=== PATIENT | female | born 1995 | race Caucasian/White ===

== ENCOUNTER 2018-12-09 16:27 | Outpatient (REF) | payer BC, SELFPAY ==
--- NOTE | 2018-12-09 14:00 | PAPFT_PTH ---
PATIENT: Diana Shah LOC: [facility] U#:[id number] AGE/SX: 23/F ROOM: RE12/09/[address]: REBEL Valentin : 1995 BED: DIS: 12/09/2018 SPEC #: [id number] RECD: 12/09/18 17:49 STATUS: ASHLEY RECarlos #: [id number] ELDA: 12/09/18 14:[address]: Jazmyne Rowland DEPT: [facility] Cytology RECD BY: Chantelle Luciano ENTERED: 12/09/18 17:50 SP TYPE: PAPFT OTHR DR: Suad Null MD Tissues: 1 - CX/ENDOCX FOR PAP SMEARS Procedures: PAP THIN PREP/UVM Screening Comments: [id number]
[2018-12-13 14:26] LABS: Chlamydia Result Negative; GC Result Negative; Specimen Description CERVIX
== END 2018-12-09 16:47 ==
LOC: LBN 16:27
PROVIDERS: PCP Family Medicine; Visit Provider Nurse Practitioner Family
DX: Z11.3 Encounter for screening for infections with a predominantly sexual mode of transmission (principal); Z12.4 Encounter for screening for malignant neoplasm of cervix
CPT/HCPCS: 87491; 87591; 88142

== ENCOUNTER 2019-10-18 11:55 | Outpatient (CLI) | payer BC, SELFPAY ==
[2019-10-18 13:59] LABS: HCG Quant, Pregnancy 247 mIU/mL (1-3)
== END 2019-10-18 12:15 ==
PROVIDERS: Visit Provider Nurse Practitioner Family
DX: O20.9 Hemorrhage in early pregnancy, unspecified (principal)
CPT/HCPCS: 36415; 84702

== ENCOUNTER 2019-10-20 12:32 | Outpatient (CLI) | payer BC, SELFPAY ==
[2019-10-20 13:18] LABS: HCG Quant, Pregnancy 258 mIU/mL (1-3)
== END 2019-10-20 12:52 ==
PROVIDERS: Visit Provider Nurse Practitioner Family
DX: O20.9 Hemorrhage in early pregnancy, unspecified (principal)
CPT/HCPCS: 36415; 84702

== ENCOUNTER 2019-10-28 12:46 | Outpatient (CLI) | payer BC, SELFPAY ==
[2019-10-28 14:03] LABS: HCG Quant, Pregnancy 85 mIU/mL (1-3)
== END 2019-10-28 13:06 ==
PROVIDERS: Visit Provider Nurse Practitioner Family
DX: O20.9 Hemorrhage in early pregnancy, unspecified (principal)
CPT/HCPCS: 36415; 84702

== ENCOUNTER 2019-11-18 13:09 | Outpatient (CLI) | payer BC, SELFPAY ==
[2019-11-18 14:25] LABS: HCG Quant, Pregnancy < 1 mIU/mL (1-3)
== END 2019-11-18 13:29 ==
PROVIDERS: Visit Provider Nurse Practitioner Family
DX: O20.9 Hemorrhage in early pregnancy, unspecified (principal)
CPT/HCPCS: 36415; 84702

== ENCOUNTER 2020-05-09 03:56 | Outpatient (CLI) | payer BC, SELFPAY ==
[2020-05-09 10:45] LABS: Abs Immature Grans 0.02 k/cumm (0.0-0.09); Absolute Basophil Count 0.01 k/cumm (0.0-0.2); Absolute Eosinophil Count 0.05 k/cumm (0.0-0.7); Absolute Lymphocyte Count 0.92 k/cumm (1.2-3.4); Absolute Monocyte Count 0.63 k/cumm (0.11-0.7); Absolute Neutrophil Count 5.09 k/cumm (1.2-6.7); Basophils % 0.1; Eosinophils % 0.7; HCT 40.8 % (36.0-46.0); HGB 13.6 g/dL (12.0-15.5); Immature Grans % 0.3 %; Lymphocytes % 13.7; Mean Corp. HGB Concentration 33.3 g/dL (32.0-36.0); Mean Corpuscular Hemoglobin 30.2 pg (27.0-33.0); Mean Corpuscular Volume 90.5 fL (80-95); Mean Platelet Volume 10.5 fL (8.0-11.0); Monocytes % 9.4; Neutrophils % 75.8; Platelet Count 232 x1000/uL (130-400); RBC 4.51 m/cumm (4.00-5.20); RBC Distribution Width 13.7 % (11.7-14.6); White Blood Cell Count 6.72 k/cumm (4.4-10.8)
[2020-05-09 11:30] LABS: TSH (W/Ref FT4) 0.81 uIU/mL (0.36-3.74)
[2020-05-10 09:59] LABS: Varicella IgG Antibody Positive (See Note)
[2020-05-10 10:03] LABS: Rubella IgG Ab (UVM) Positive (See Note)
[2020-05-10 13:23] LABS: Hepatitis B Surface Ag Negative (Negative)
[2020-05-10 13:35] LABS: Hepatitis C Ab w Rflx HCV PCR Negative (Negative)
[2020-05-10 14:10] LABS: HIV-1/2 Ag & Ab Screen Negative (Negative)
[2020-05-11 12:14] LABS: Syphilis Total Ab w/Reflex Nonreactive (Nonreactive)
== END 2020-05-09 04:16 ==
PROVIDERS: Advanced Practice Midwife; Visit Provider Obstetrics & Gynecology Gynecology
DX: Z34.91 Encounter for supervision of normal pregnancy, unspecified, first trimester (principal); Z3A.12 12 weeks gestation of pregnancy
CPT/HCPCS: 36415; 86787; 86803; 86850; 86900; 86901; 87340; 87389; 84443; 85025; 86762; 86780

== ENCOUNTER 2020-05-09 13:01 | Outpatient (REF) | payer BC, SELFPAY ==
[2020-05-09 11:33] LABS: *AMPHETAMINES SCREEN URINE Negative (Negative); *BARBITURATES SCREEN URINE Negative (Negative); *BENZODIAZEPINES SCREEN URINE Negative (Negative); Cannabinoids THC Negative (Negative); Cocaine Screen,Urine Negative (Negative); METHADONE URINE SCREEN Negative (Negative); OPIATES URINE SCREEN Negative (Negative)
[2020-05-09 11:39] LABS: Tricyclic Antidepressants Negative (Negative)
[2020-05-10 14:35] LABS: Chlamydia Result Negative (Negative); GC Result Negative (Negative)
[2020-05-15 14:17] LABS: Buprenorphine Negative; Norbuprenorphine Negative
== END 2020-05-09 13:21 ==
LOC: LBN 13:01
PROVIDERS: Visit Provider Advanced Practice Midwife
DX: Z34.91 Encounter for supervision of normal pregnancy, unspecified, first trimester (principal); Z3A.12 12 weeks gestation of pregnancy
CPT/HCPCS: 80307; 87491; 87591; 87086; 87480; 87510; 87660

== ENCOUNTER 2020-06-21 01:24 | Outpatient (CLI) | payer BC, SELFPAY ==
--- NOTE | 2020-06-21 06:45 | DI.US_ITS ---
EXAM: US OB 2-3 TRIMESTER CLINICAL HISTORY: 18 wk anatomy survey, [id number]. TECHNIQUE: Transabdominal obstetrical ultrasound performed. COMPARISON: US PELVIS ULTRASOUND from 12/03/2009 FINDINGS: Transabdominal obstetrical ultrasound performed. FINDINGS: Number of fetuses: One. position: Varied. heart rate: 143 bpm. Placental location: Anterior. No evidence of previa. BIOMETRIC DATA: EFW: 239 grms 71% Composite Age: 18 weeks 4 days EDC: 11/18/2020 Amniotic fluid index: Amount of fluid is within normal limits. ANATOMICAL SURVEY: Within normal limits. Placental cord insertion site is 1.5 cm from the placental edge. IMPRESSION: 1. Single live intrauterine gestation as above. 2. Marginal cord insertion. 3. Normal anatomic survey. DATA REPOSITORY:
== END 2020-06-21 01:44 ==
PROVIDERS: Visit Provider Advanced Practice Midwife
DX: Z34.92 Encounter for supervision of normal pregnancy, unspecified, second trimester (principal); Z3A.18 18 weeks gestation of pregnancy
CPT/HCPCS: 76805

== ENCOUNTER 2020-08-27 00:35 | Outpatient (CLI) | payer BC, SELFPAY ==
--- NOTE | 2020-08-27 08:30 | DI.US_ITS ---
EXAM: US OB RUDY WEIGHT CLINICAL HISTORY: ,O43.193,wt,cord insertion TECHNIQUE: Ultrasound performed using standard protocol. COMPARISON: US US OB 2-3 TRIMESTER from 06/21/2020 FINDINGS: Ob ultrasound was performed utilizing 3rd trimester protocol. biometry is consistent with gest ational age of 28 weeks 3 days and EDC of November 16, 2020. The estimated weight is 1186 grams which is at the 50th percentile for predicted gestational ag e. Placenta is anterior and there is no evidence of placenta previa. The cord insertion on the placenta is about 17 millimeters from the placental margin. Fetus is in cephalic presentation. heart rate is 136 BPM. There is visually a normal quantity of amniotic fluid and the RUDY is 14. IMPRESSION: DATA REPOSITORY:
== END 2020-08-27 00:55 ==
PROVIDERS: Visit Provider Advanced Practice Midwife
DX: O43.193 Other malformation of placenta, third trimester (principal)
CPT/HCPCS: 76816

== ENCOUNTER 2020-08-27 16:16 | Outpatient (CLI) | payer BC, SELFPAY ==
[2020-08-27 16:57] LABS: HCT 37.1 % (36.0-46.0); MCH 30.3 pg (27.0-33.0); MCHC 32.3 % (32.0-36.0); MCV 93.7 fL (80-95); MPV 11.7 fL (8.0-11.0); Platelet Count 215 10^3/uL (130-400); RBC 3.96 10^6/uL (3.93-5.22); RDW 13.1 % (11.7-14.6); WBC 12.27 10^3/uL (4.4-10.8)
[2020-08-27 17:09] LABS: Glucose,1 Hr (Glucola) 145 mg/dL (80-140)
== END 2020-08-27 16:36 ==
PROVIDERS: Visit Provider Advanced Practice Midwife
DX: Z34.93 Encounter for supervision of normal pregnancy, unspecified, third trimester (principal); Z3A.28 28 weeks gestation of pregnancy
CPT/HCPCS: 36415; 82950; 85027

== ENCOUNTER 2020-09-03 02:13 | Outpatient (CLI) | payer BC, SELFPAY ==
[2020-09-03 11:20] LABS: Glucose 1 Hour 162 mg/dL
[2020-09-03 13:17] LABS: Glucose 3 Hour 122 mg/dL
== END 2020-09-03 02:33 ==
PROVIDERS: Advanced Practice Midwife; Visit Provider Advanced Practice Midwife
DX: Z34.93 Encounter for supervision of normal pregnancy, unspecified, third trimester (principal)
CPT/HCPCS: 36415; 82951

== ENCOUNTER 2020-09-25 01:15 | Outpatient (CLI) | payer BC, SELFPAY ==
--- NOTE | 2020-09-25 07:15 | DI.US_ITS ---
EXAM: US OB RUDY WEIGHT CLINICAL HISTORY: marginal cord insertion, thus needs serial growth,o43.193 TECHNIQUE: Ultrasound performed using standard protocol. COMPARISON: US US OB RUDY WEIGHT from 08/27/2020 FINDINGS: Ob ultrasound was performed utilizing 3rd trimester protocol. biometry is consistent with gest ational age of 32 weeks 4 days and EDC of November 16, 2020. The estimated weight is 1929 grams which is at the 46th percentile for predicted gestational ag e. Placenta is anterior. Previously noted marginal cord insertion is not well visualized on today's exa mination. Fetus is in cephalic presentation. heart rate, 150 BPM. There is visually a normal quantity of amniotic fluid and the RUDY is 19. IMPRESSION: DATA REPOSITORY:
== END 2020-09-25 01:35 ==
PROVIDERS: Visit Provider Advanced Practice Midwife
DX: O43.193 Other malformation of placenta, third trimester (principal)
CPT/HCPCS: 76816

== ENCOUNTER 2020-10-22 02:22 | Outpatient (CLI) | payer BC, SELFPAY ==
--- NOTE | 2020-10-22 07:00 | DI.US_ITS ---
EXAM: US OB RUDY WEIGHT CLINICAL HISTORY: marginal cord insertion needs serial usg last 46%,o43.193. TECHNIQUE: Transabdominal obstetrical ultrasound was performed. COMPARISON: US US OB RUDY WEIGHT from 09/25/2020 FINDINGS: There is a single viable intrauterine gestation with cardiac activity identified-155 bpm The fetus is presently in cephalic position . Amniotic fluid: There is a normal amount of amniotic fluid with an RUDY of 20.1cm. Placental location: The placenta is anterior grade 2-3,with no evidence of placenta previa.The abilit y 0 cord insertion is less than 2 centimeters from the placental margin. Dating parameters place this at approximately 36 weeks and 1 day gestational age, implying JEANNA of November 18, 2020. BPD measures 35 weeks and 0 days HC measures 38 weeks and 1 day AC measures 36 weeks and 4 days FL measures 35 weeks and 0 days Estimated weight is 2855 gm-6 pounds, 5 ounces. Fetus is at the 58th percentile on the Hadlock scale. IMPRESSION:: Viable 3rd trimester gestation as described. The umbilical cord insertion is less than 2 centimeters from the placental margin. DATA REPOSITORY:
== END 2020-10-22 02:42 ==
PROVIDERS: Visit Provider Advanced Practice Midwife
DX: Z34.93 Encounter for supervision of normal pregnancy, unspecified, third trimester (principal); Z3A.36 36 weeks gestation of pregnancy
CPT/HCPCS: 76816

== ENCOUNTER 2020-10-22 10:53 | Outpatient (REF) | payer BC, SELFPAY ==
[2020-10-22 11:58] LABS: *AMPHETAMINES SCREEN URINE Negative (Negative); *BARBITURATES SCREEN URINE Negative (Negative); *BENZODIAZEPINES SCREEN URINE Negative (Negative); Cannabinoids THC Negative (Negative); Cocaine Screen,Urine Negative (Negative); METHADONE URINE SCREEN Negative (Negative); OPIATES URINE SCREEN Negative (Negative); Tricyclic Antidepressants Negative (Negative)
[2020-10-28 12:24] LABS: Buprenorphine Negative
== END 2020-10-22 11:13 ==
LOC: LBN 10:53
PROVIDERS: Visit Provider Advanced Practice Midwife
DX: Z34.93 Encounter for supervision of normal pregnancy, unspecified, third trimester (principal); Z36.85 Encounter for antenatal screening for Streptococcus B; Z3A.36 36 weeks gestation of pregnancy
CPT/HCPCS: 80307; 87081

== ENCOUNTER 2020-11-07 19:48 | Inpatient (IN) | payer BC, SELFPAY ==
[2020-11-07] MEDS: Methylergonovine 0.2 MG/ML VIAL (00:08)
--- NOTE | 2020-11-07 20:21 | HPE_ITS ---
Date of service: 11/07/20 Time of Service: : Assessment and Plan Assessment and plan (1) Spontaneous rupture of membranes: Status: Acute Assessment and plan: A: G1 @ 38 wks, SROM clear confirmed Known marginal cord insertion, normally grown AGA fetus per serial scans Category 1 tracing, GBS negative low risk for shoulder dystocia or PPH early labor/latent phase P: Admit to BC, CBC, T&S, COVID swab Intermittent auscultation, expectant management Anticipate OB-HPI Labor/Delivery History of Present Illness Reason for Visit: R/O SROM AT TERM Chief Complaint: Suspected Rupture of Membranes , Associated Signs and Symptoms of Suspected ROM: gushes of clear fluid began at 1700 today. JEANNA Calculator Estimated Delivery Date Method Current WG Current Estimate 11/20/20 Ultrasound #1 38w 1d Other Estimates 11/22/20 LMP (Certain) 37w 6d History of Present Expected Delivery Route/Plan - CNM FOB/ - Hamzah Shah (first child) BG - Daisy Lockhart GBS negative Specific Issues/Plan 1. Undecided about optional AP screening, will discuss w/FOB 1a. Declines AP screening tests, 06/21/20 declination form signed al 2. BV+ on VPS, Rx Flagyl 500 mg PO BID x7 days 3. 06/21/20 Anatomy screen= marginal cord insertion to edge of placenta =1.[address] Al: f/u @ 28 weeks, possible serial f/u depending on findings. al 3a. Consult with Dr. Al -Growth US at 32 and 36 weeks. 3b. Normal US at 28 weeks 46%ile, RUDY 19.2 3c. 10/22/20 usg(last of serial) 58%/20.1 al 4. 27 wk glucola level elevated at 145, 3 hr GTT is nml x4 5. 36 week uds neg al Review of Systems All systems reviewed & are unremarkable except as noted in HPI and below Constitutional Constitutional: Reports system reviewed and no additional complaints, except as documented ENT Ears, Nose, Mouth, and Throat: Reports system reviewed and no additional complaints, except as documented Cardiovascular Cardiovascular: Reports system reviewed and no additional complaints, except as documented Respiratory Respiratory: Reports system reviewed and no additional complaints, except as documented Gastrointestinal Gastrointestinal: Reports system reviewed and no additional complaints, except as documented Genitourinary Genitourinary: Reports system reviewed and no additional complaints, except as documented Musculoskeletal Musculoskeletal: Reports system reviewed and no additional complaints, except as documented Integumentary/Breasts Skin/Breast: Reports system reviewed and no additional complaints, except as documented Neurologic Neurologic: Reports system reviewed and no additional complaints, except as documented Psychiatric Psychiatric: Reports system reviewed and no additional complaints, except as documented Allergic/Immunologic Allergic/Immunologic: Reports system reviewed and no additional complaints, except as documented PFSH Medical History (Updated 11/07/20 @ 20:29 by Cherie Thomas) 12 weeks gestation of 18 weeks gestation of Contraception (05/02/16) IUD surveillance (04/17/17) Positive test Family History (Updated 06/21/20 @ 08:52 by Truman Delatorre CNM) Maternal Uncle Hypertension Hodgkin lymphoma Paternal Aunt Pancreatic cancer Social History Smoking/Tobacco Use Status: Never Smoking risk assessment performed?: Yes Current gender identity: female Female Reproductive History Menstrual control method: progestin IUCD History History 2 Para 0 Hx # Term Pregnancies 0 Multiple births 0 Hx # Pregnancies 0 Ectopic pregnancies 0 AB induced 0 Hx Number of Living Children 0 AB spontaneous 1 Meds Home Medications and Allergies Home Medications Medication Instructions Recorded Confirmed Type prenat.vits,sherrie,[id number] 1 tab PO DAILY 10/18/19 09/25/20 History Allergies Allergy/AdvReac Type Severity Reaction Status Date / Time pertussis vaccine,adsorbed Allergy Intermediate seizures Verified 11/05/20 09:22 Exam Physical Exam Vital Signs Reviewed: Yes Constitutional Constitutional: mild distress and cooperative Detailed Labor and Delivery Exam Dilation: 3 Effacement (%): 90 station: -2 Cervix position: posterior Consistency: medium MORGAN Score(Cervical Ripeness Score): 7 Amniotic Membrane Status: Ruptured Rupture Method: Spontaneous Amniotic Fluid: Clear Pooling: Positive Nitrazine: Positive Ferning: Present Monitor Mode: External Contraction Frequency(min): irregular and frequent Contraction Duration(sec): 40-50 seconds Contraction Intensity: Mild Fetus A Heart Rate Baseline: 135 Monitor Accelerations: 15 X 15 Monitor Decelerations: None Variability: Moderate (6-25 BPM) Presentation: Cephalic Categories: Category I Est. Weight: 6 lb 13.349 oz Est. Weight: 3100 gms Date of Membrane Rupture: 11/07/20 Time of Membrane Rupture: 17:00 HEENT Exam HEENT Exam: Normal Neck Exam Neck Exam: Normal Chest/Brest/Axilla Exam Chest Exam: Normal Breast Exam Breast Exam: Normal Respiratory Exam Respiratory Exam: Normal Cardiovascular Exam Cardiovascular Exam: Normal Abdominal Exam Abdominal Exam: Normal (Gravid, soft, S=D) Rectal Exam Rectal Exam: Not Done Exam Exam: Normal Extremities Exam Extremities Exam: Normal Back/Spine/Pelvis Exam Back Exam: Normal Pelvis Adequate: Yes Skin Exam Skin Exam: Normal Neurological Exam Neurological Exam: Normal Psychiatric Exam Psychiatric Exam: Normal Results Results Group Beta Strep: Negative Blood Type: O+ Rubella Status: Immune Varicella Immunity: Immune Risk Assessment Risk for Shoulder Dystocia Historical/Initial OB: NEGATIVE FOR: Pelvic Abnormality, Pre- BMI>30, Previous Shoulder Dystocia or Previous Macrosomia 40 Weeks: POSTIVE FOR: Maternal Weight Gain >40lb; NEGATIVE FOR: EFW> 4500 gms or Post Dates Increased Risk?: No Counselin/21: serial growth scans for EFW in the 46th percentile at 32 wks, then 58th percentile at 36 wks therefore risk for SD is low in the setting of primipara with >40 lb TWG. Date/Initial: 10/22/20 reviewed wt gain. al Delivery Plan @ 36wks: al Risk for Pre-Eclampsia Daily Dose ASA Indicated: No Yes, if one or more: NEGATIVE FOR: Hx Pre-E/Gest HTN, Chronic HTN, Multiple Gestation, Pre-gestational DM, Renal Disease, Systemic Lupus or APA Syndrome Yes, if 2 or more: POSITIVE FOR: Nulliparity; NEGATIVE FOR: Age>= 35 yrs, >10yr btwn pregnancies, BMI>30, ethinicty, Mother/Sister w/ Pre-E or Previous IUGR Risk for Post- Hemorrhage Initial: NEGATIVE FOR: Multiple Gestation, Previous PPH, Known Clotting Deficiency, Grand Multiparity or Anticoagulation At Risk?: No Counseled re: Active Management: Yes (10/22/20 al) Date/Initials: 10/22/20 al Risks Reviewed Risks Reviewed Upon Admission: Yes
[2020-11-07 21:10] LABS: HCT 39.7 % (36.0-46.0); HGB 13.1 g/dL (11.2-15.7); MCH 29.7 pg (27.0-33.0); MPV 12.2 fL (8.0-11.0); Platelet Count 184 10^3/uL (130-400); RBC 4.41 10^6/uL (3.93-5.22); RDW 12.6 % (11.7-14.6); RDW-SD 41.5 fL; WBC 11.35 10^3/uL (4.4-10.8)
[2020-11-07 22:21] VITALS: BP 139/67; PULSE 84; RESP 18; TEMP 36.7; O2SAT 99
--- NOTE | 2020-11-07 22:33 | W.PM.OBNL1 ---
Date of service: 11/07/20 Time of Service: 22:34 Pelvic Exam Dilation: 7 Effacement (%): 100 station: 0 Cervix Position: anterior Consistency: soft Vaginal Exam Presentation: Cephalic Contractions Monitor Mode: Palpation Contraction Frequency(min): every 2 minutes Contraction Duration(sec): 60-90 seconds Intensity: Moderate/Strong Fetus A Monitor: Doppler Heart Rate Baseline: 135 Presentation: Cephalic FHR Rhythm: Regular Characteristics: Normal Accelerations: Present Decelerations: None Amniotic Membrane Status: Ruptured Assessment and Plan Assessment and plan (1) Spontaneous rupture of membranes: Status: Acute Assessment and plan: A: Primip in active spontaneous labor P: Continue current management Anticipate Objective Abnormal lab results 11/07/20 Range/Units 21:00 WBC 11.35 H (4.4-10.8) 10^3/uL MPV 12.2 H (8.0-11.0) fL Temp Pulse Resp BP Pulse Ox 98.1 F 84 18 139/67 99 11/07/20 22:21 11/07/20 22:21 11/07/20 22:21 11/07/20 22:21 11/07/20 22:21 Laboratory Results WBC 11.35 10^3/uL (4.4-10.8) H 11/07/20 21:00 RBC 4.41 10^6/uL (3.93-5.22) 11/07/20 21:00 Hgb 13.1 g/dL (11.2-15.7) 11/07/20 21:00 Hct 39.7 % (36.0-46.0) 11/07/20 21:00 MCV 90.0 fL (80-95) 11/07/20 21:00 MCH 29.7 pg (27.0-33.0) 11/07/20 21:00 MCHC 33.0 % (32.0-36.0) 11/07/20 21:00 RDW 12.6 % (11.7-14.6) 11/07/20 21:00 Plt Count 184 10^3/uL (130-400) 11/07/20 21:00 MPV 12.2 fL (8.0-11.0) H 11/07/20 21:00 Patient ABO/Rh O Positive 11/07/20 21:00 Vital Signs Reviewed: Yes Objective Narrative Objective Narrative: vss active labor coping well using nitrous and changing positions FOB present for support FHT reassuring per intermittent auscultation Subjective Interval history since last seen: Intense contractions, using nitrous, was in shower, now hands and knees on mat, suing cub for upper body support Results Hemoglobin/Hematocrit: Hgb 13.1 g/dL (11.2-15.7) 11/07/20 21:00 Hct 39.7 % (36.0-46.0) 11/07/20 21:00 Abnormal Lab Findings: Abnormal Labs 11/07/20 21:00 WBC 11.35 H MPV 12.2 H
[2020-11-07 23:07] VITALS: BP 117/68; PULSE 90; TEMP 36.6
[2020-11-07 23:22] VITALS: PULSE 90
[2020-11-07] MEDS: Oxytocin 10 UNITS/ML VIAL IM (23:56)
[2020-11-08] VITALS (12 sets, daily range): BP systolic 114–134; BP diastolic 71–88; PULSE 72–93; RESP 16–80; TEMP 36.7–36.8; O2SAT 98
--- NOTE | 2020-11-08 00:25 | W.OBDELIVERY ---
Date of service: 11/08/20 Time of Service: 00:25 OB Labor/ Delivery Information Baby A Delivery Delivery Method: Spontaneaous Presentation: Cephalic Cephalic Position: Vertex Vertex Position: Left Occipital Anterior Breech Position: N/A Cord Description-Baby A: 3 Vessels Cord Description Comment: eccentric insertion with succenturiate lobe, 2 velamentous vessels running between the lobe and the main placental disc, into the cord insertion area Amniotic Fluid: Clear Estimated Blood Loss: 400 Delivery Outcome: Liveborn Complications: left nuchal hand, copious vernix Infant Transferred: Remains with Mother Note: Pt labored effectively and actively using nitrous, began pushing spontaneously after emptying her bladder on the bedside commode, 2nd stage huddle completed, pt assisted to bed. Excellent maternal efforts achieved over intact perineum, left nuchal hand and shoulders came easily, baby to mother's arms immediately, 10 units pitocin given IM. At 6 minutes cord ceased pulsating, was clamped and then cut by FOB, cord blood collected. Partial separation of placenta noted with increasing vaginal bleeding, 0.2 mg methergine given IM, Cantu placenta delivered intact with maternal efforts, fundal massage and very baljit cord traction. Eccentric 3VC (3 cm from edge), succenturiate lobe noted joined to main placental disc with 2 velamentous vessels running between the lobes and entering the cord insertion area. Vulva and vagina inspected and found to be without laceration, left labial lac edges tacked with 1 stitch of 3.0 Vicryl. Excellent family bonding noted. Providers Nurse Transition Specialist: Cherie Thomas Nurse: Edel Shelby Nurse: Patti Dasilva Labor/Delivery Information Steroids Given: None Group Beta Strep: Negative Rubella Status: Immune Blood Type: O+ Varicella Immunity: Immune Maternal Complications: None Shoulder Dystocia: No Stages of Labor Onset of Labor Date: 11/07/20 Onset of Labor Time: 17:00 Complete Dilatation Date: 11/07/20 Complete Dilatation Time: 23:22 Labor - Stage 1 Duration: 0 minutes ROM Baby A: 11/07/20 ROM Baby A: 17:00 Delivery Date-Baby A: 11/07/20 Infant Delivery Time-Baby A: 23:54 Labor Stage 2 Duration: 32 minutes Placenta Delivery Date-Baby A: 11/08/20 Placenta Delivery Time-Baby A: 00:10 Labor-Stage 3 Duration: 16 minutes Total Length of Labor-Baby A: 6 hours and 54 minutes Placenta Status: Delivered Baby A Gender: Female Gestational Status: Early Term (37-38.6 wks) Gestational Age in Weeks/Days: 38 Weeks and 1 Days weight: 6 lb 10.88 oz Weight Comment: 3030 gms Score-1 Minute Interval(Baby A) Heart Rate-1 minute: 100 BPM or Greater Respiratory Effort- 1 minute: Spontaneous/Strong Cry Muscle Tone-1 minute: Active Movement Reflex Response-1 minute: Prompt Response Color-1 minute: Pallor or Cyanosis Score-5 Minute Interval(Baby A) Heart Rate- 5 minute: 100 BPM or Greater Respiratory Effort-5 minute: Spontaneous/Strong Cry Muscle Tone-5 minute: Active Movement Reflex Response-5 minute: Prompt Response Color-5 minute: Bluish Hands or Feet Procedure Procedures: Cord Blood Collection
[2020-11-08 06:40] LABS: HCT 38.8 % (36.0-46.0); HGB 12.7 g/dL (11.2-15.7); MCH 29.1 pg (27.0-33.0); MCHC 32.7 % (32.0-36.0); MPV 11.9 fL (8.0-11.0); Platelet Count 159 10^3/uL (130-400); RBC 4.36 10^6/uL (3.93-5.22); RDW 12.6 % (11.7-14.6); RDW-SD 41.7 fL; WBC 18.82 10^3/uL (4.4-10.8)
--- NOTE | 2020-11-08 16:21 | W.PM.OBPNV1 ---
Date of service: 11/08/20 Time of Service: 12:21 Assessment and Plan Assessment and plan (1) Term delivered: Status: Acute Assessment and plan: A: PPD#1, nml recovery P: Pt plans to use POP oral contraceptives support per nursing staff Plan discharge tomorrow pending release of baby F/up at 2 & 6 wks Subjective Subjective Patient comments: No complaints, Pain well controlled, Tolerating diet and Flatus present baby status: Doing well, Nursing well, Rooming in and Strong Bonding Observed feeding status: Exclusively breast feeding Exam Physical Exam Vital signs: Temp Pulse Resp BP Pulse Ox 98.1 F 72 18 119/78 99 11/08/20 12:13 11/08/20 12:13 11/08/20 12:13 11/08/20 12:13 11/07/20 22:21 Vital Signs Reviewed: Yes Constitutional Constitutional: no acute distress HEENT Exam HEENT Exam: Normal Neck Exam Neck Exam: Normal Breast Exam Bilateral: Breast Exam: Normal and Soft Nipple Exam: Normal and Uninjured Respiratory Exam Respiratory Exam: Normal Cardiovascular Exam Cardiovascular Exam: Normal Abdominal Exam Abdomen: Other (soft, nontender) Fundal Exam Fundus: Below Umbilicus and Firm Rectal Exam Rectal Exam: Normal Exam Perineum: Intact and Normal Extremities Exam Extremity Exam: Normal, Full ROM and Pulses Intact Back/Spine/Pelvis Exam Back Exam: Normal Skin Exam Skin Exam: Normal Neurological Exam Neurological Exam: Normal Psychiatric Exam Psychiatric Exam: Normal (happy) Results Hemoglobin/Hematocrit: Hgb 12.7 g/dL (11.2-15.7) 11/08/20 06:35 Hct 38.8 % (36.0-46.0) 11/08/20 06:35
[2020-11-08 21:04] LABS: COVID-19 RT-PCR UVMMC Result Negative (Negative)
[2020-11-09 08:01] VITALS: BP 117/80; PULSE 76; RESP 20; TEMP 36.6; O2SAT 98
--- NOTE | 2020-11-09 09:34 | DSE_ITS ---
Date of service: 11/09/20 Time of Service: 09:34 DS: Diagnosis Discharge Diagnosis (1) Term delivered: Status: Acute Discharge Plan Disposition Patient Disposition: HOME Condition: Good Discharge Details Reason For Visit: R/O SROM AT TERM Admit Date/Time: 11/07/20 20:19 Admit Provider: Cherie Thomas Attending Provider: Cherie Thomas Primary Care Provider: None,None Hospital Course Hospital Course: spontaneous labor after SROM, , nml course Home Meds and New Rx's Prescriptions: No Action prenat.vits,sherrie,[id number] Tablet 1 tab PO DAILY RF: 0 Discharge Instructions Additional Instructions: Please make and keep your 2 and 6 week appointments with your cardiac cath lab radiology technologist, call for any concerns or questions. Stand Alone Forms: BC Instructions, NB [place] Instructions, BC Post Vaginal Deliver Activity:: Activity as Tolerated Equipment/Supplies:: No Equipment Needed Diet:: Normal Diet Discharge Orders Discharge Orders: Discharge Order (Routine); Ordered 11/09/20 Ordered By: Cherie Thomas OB:DS Summary Summary Vaginal Delivery Method: Spontaneaous Episiotomy Description: None Laceration Description: None Contraception Discussed Contraception Discussed: Yes Contraceptive Plan: Control Pill/Patch, Infant Gender-Baby A: Female weight: 6 lb 10.88 oz Status at Discharge Functional status at discharge: independent ambulation Overall status at discharge: patient is progressing back to baseline Mental Status: mental status grossly normal Speech and Movement: speech and movement normal and speech clear Mood: congruent mood Affect: normal affect Exam Physical Exam Vital signs: Temp Pulse Resp BP Pulse Ox 97.9 F 76 20 117/80 98 11/09/20 08:01 11/09/20 08:01 11/09/20 08:01 11/09/20 08:01 11/09/20 08:01 Vital Signs Reviewed: Yes Constitutional Constitutional: no acute distress HEENT Exam HEENT Exam: Normal Neck Exam Neck Exam: Normal Breast Exam Bilateral: Breast Exam: Normal and Soft Respiratory Exam Respiratory Exam: Normal Cardiovascular Exam Cardiovascular Exam: Normal Abdominal Exam Abdomen: Other (soft, nontender) Fundal Exam Fundus: Below Umbilicus and Firm Rectal Exam Rectal Exam: Normal Exam Perineum: Intact and Normal Extremities Exam Extremity Exam: Normal, Full ROM and Pulses Intact Back/Spine/Pelvis Exam Back Exam: Normal Skin Exam Skin Exam: Normal Neurological Exam Neurological Exam: Normal Psychiatric Exam Psychiatric Exam: Normal (happy) [facility] Medical History (Updated 11/08/20 @ 16:23 by Cherie Thomas) 12 weeks gestation of 18 weeks gestation of Contraception (05/02/16) IUD surveillance (04/17/17) Positive test Family History (Updated 06/21/20 @ 08:52 by Truman Delatorre CNM) Maternal Uncle Hypertension Hodgkin lymphoma Paternal Aunt Pancreatic cancer Social History Smoking/Tobacco Use Status: Never Smoking risk assessment performed?: Yes Current gender identity: female Do you feel safe at home: Yes Do you feel safe in your relationship?: Yes Female Reproductive History Menstrual control method: progestin IUCD History History 2 Para 0 Hx # Term Pregnancies 0 Multiple births 0 Hx # Pregnancies 0 Ectopic pregnancies 0 AB induced 0 Hx Number of Living Children 0 AB spontaneous 1 DS: Data Vitals/I&O Vitals and I&O: Vital Signs Temperature 97.9 F 11/09/20 08:01 Pulse 76 11/09/20 08:01 Pulse Rhythm Regular 11/09/20 08:01 Respiratory Rate 20 11/09/20 08:01 Blood Pressure 117/80 11/09/20 08:01 Blood Pressure Mean 92 11/09/20 08:01 Pulse Oximetry 98 11/09/20 08:01 Oxygen Delivery Method Room Air 11/07/20 22:21 Oxygen Flow Rate 0 11/07/20 22:21 Pain Level 0 11/09/20 08:01 Intake & Output 11/08/20 11/08/20 11/09/20 11:59 23:59 11:59 Output Total 550 / 900 350 / 900 Balance -550 / -900 -350 / -900 Output: Urine 550 / 900 350 / 900 Other: Urine Color Yellow Data Completed and Pending Labs on day of discharge: Labs from last 24 hours 11/07/20 21:55 SARS-CoV-2 (PCR) Negative Nasopharyn COVID-19 PCR Not Applicable Ref Test Perform Site [facility] lab
== END 2020-11-09 11:19 | disposition home or self-care (01) | DRG 807 ==
PROVIDERS: Admitting Provider Advanced Practice Midwife; Visit Provider Advanced Practice Midwife
DX: O43.193 Other malformation of placenta, third trimester (principal); Z37.0 Single live birth; O43.123 Velamentous insertion of umbilical cord, third trimester; O70.0 First degree perineal laceration during delivery; Z3A.37 37 weeks gestation of pregnancy; Z11.52 Encounter for screening for COVID-19
CPT/HCPCS: 36415; 85027; 86850; 86900; 86901; U0003; J2210; J2590

== ENCOUNTER 2021-07-09 01:27 | Outpatient (CLI) | payer BC, SELFPAY ==
[2021-07-09 08:15] LABS: Calculated LDL 99 mg/dL (<100); Cholesterol 181 mg/dL (<200); HDL Cholesterol 72 mg/dL (40-60); Triglyceride 51 mg/dL (<150)
[2021-07-09 09:26] LABS: Hemoglobin A1C 5.4 % (<5.7)
== END 2021-07-09 01:28 | disposition home or self-care (01) ==
LOC: LBO 01:27
PROVIDERS: PCP Nurse Practitioner Family; Visit Provider Nurse Practitioner Family
DX: Z13.1 Encounter for screening for diabetes mellitus (principal); Z13.220 Encounter for screening for lipoid disorders
CPT/HCPCS: 36415; 80061; 83036

== ENCOUNTER 2021-10-30 09:07 | Outpatient (REF) | payer BC, SELFPAY ==
[2021-10-31 15:48] LABS: COVID-19 RT-PCR UVMMC Result Positive (Negative)
== END 2021-10-30 09:08 | disposition home or self-care (01) ==
LOC: NCHCN 09:07
PROVIDERS: PCP Nurse Practitioner Family; Visit Provider Family Medicine
DX: Z20.822 Contact with and (suspected) exposure to COVID-19 (principal)
CPT/HCPCS: U0003

== ENCOUNTER 2022-01-14 14:23 | Outpatient (REF) | payer BC, SELFPAY ==
--- NOTE | 2022-01-14 13:45 | PAPFT_PTH ---
PATIENT: Diana Shah LOC: [facility] U#:[id number] AGE/SX: 26/F ROOM: RE01/14/[address]: REBEL Valentin : 1995 BED: DIS: 01/14/2022 SPEC #: [id number] RECD: 01/14/22 18:11 STATUS: ASHLEY REQ #: [id number] ELDA: 01/14/22 13:[address]: Jazmyne Rowland DEPT: [facility] Cytology RECD BY: Chantelle Luciano ENTERED: 01/14/22 18:11 SP TYPE: PAPFT GENNA DR: Emery Perry, GIANCARLO Tissues: 1 - CX/ENDOCX FOR PAP SMEARS Procedures: PAP THIN PREP/UVM Screening Comments: [id number]
== END 2022-01-14 14:24 | disposition home or self-care (01) ==
LOC: LBN 14:23
PROVIDERS: PCP Nurse Practitioner Family; Visit Provider Nurse Practitioner Family
DX: Z12.4 Encounter for screening for malignant neoplasm of cervix (principal)
CPT/HCPCS: 88142

== ENCOUNTER 2022-03-28 15:23 | Outpatient (REF) | payer BC, SELFPAY ==
[2022-03-31 15:37] LABS: Chlamydia Result Negative (Negative); GC Result Negative (Negative)
== END 2022-03-28 15:24 | disposition home or self-care (01) ==
LOC: LBN 15:23
PROVIDERS: PCP Nurse Practitioner Family; Visit Provider Advanced Practice Midwife
DX: N89.8 Other specified noninflammatory disorders of vagina (principal); Z32.01 Encounter for pregnancy test, result positive
CPT/HCPCS: 87491; 87591; 87480; 87510; 87660

== ENCOUNTER 2022-05-02 01:45 | Outpatient (CLI) | payer BC, SELFPAY ==
[2022-05-02 11:55] LABS: Abs Immature Grans 0.02 10^3/uL (0.0-0.06); Absolute Basophil Count 0.03 10^3/uL (0.0-0.2); Absolute Eosinophil Count 0.04 10^3/uL (0.0-0.7); Absolute Lymphocyte Count 1.53 10^3/uL (1.2-3.4); Absolute Monocyte Count 0.46 10^3/uL (0.1-0.8); Absolute Neutrophil Count 5.36 10^3/uL (1.2-6.7); Basophils % 0.4; Eosinophils % 0.5; Immature Grans % 0.3; Lymphocytes % 20.6; MCHC 33.3 % (32.0-36.0); MCV 90 fL (80-95); MPV 10.3 fL (8.0-11.0); Monocytes % 6.2; Platelet Count 236 10^3/uL (130-400); RBC 4.34 10^6/uL (3.93-5.22); RDW 12.9 % (11.7-14.6); RDW-SD 42.5 fL; WBC 7.44 10^3/uL (4.4-10.8)
[2022-05-03 13:01] LABS: HIV-1/2 Ag & Ab Screen Negative (Negative)
[2022-05-05 10:52] LABS: Hepatitis B Surface Ag Negative (Negative)
[2022-05-05 11:38] LABS: Hepatitis C Ab w Rflx HCV PCR Negative (Negative)
[2022-05-05 18:19] LABS: Syphilis IgG w/Reflex Nonreactive (Nonreactive)
[2022-05-05 18:28] LABS: Varicella IgG Antibody Positive (See Note)
[2022-05-05 18:34] LABS: Rubella IgG Ab (UVM) Positive (See Note)
== END 2022-05-02 01:46 | disposition home or self-care (01) ==
LOC: LBO 01:45
PROVIDERS: Advanced Practice Midwife; PCP Nurse Practitioner Family; Visit Provider Advanced Practice Midwife
DX: Z34.91 Encounter for supervision of normal pregnancy, unspecified, first trimester (principal); Z3A.10 10 weeks gestation of pregnancy
CPT/HCPCS: 36415; 86787; 86803; 86850; 86900; 86901; 87340; 87389; 85025; 86762; 86780

== ENCOUNTER 2022-05-02 16:40 | Outpatient (REF) | payer BC, SELFPAY ==
[2022-05-02 12:28] LABS: *AMPHETAMINES SCREEN URINE Negative (Negative); *BARBITURATES SCREEN URINE Negative (Negative); *BENZODIAZEPINES SCREEN URINE Negative (Negative); Cannabinoids THC Negative (Negative); Cocaine Screen,Urine Negative (Negative); METHADONE URINE SCREEN Negative (Negative); OPIATES URINE SCREEN Negative (Negative); Tricyclic Antidepressants Negative (Negative)
[2022-05-05 13:26] LABS: Chlamydia Result Negative (Negative); GC Result Negative (Negative)
[2022-05-08 18:04] LABS: Buprenorphine Negative ng/mL (Cutoff: 5.0); Norbuprenorphine Negative ng/mL (Cutoff: 2.5)
== END 2022-05-02 16:41 | disposition home or self-care (01) ==
LOC: LBN 16:40
PROVIDERS: PCP Nurse Practitioner Family; Visit Provider Advanced Practice Midwife
DX: Z34.91 Encounter for supervision of normal pregnancy, unspecified, first trimester (principal); Z3A.10 10 weeks gestation of pregnancy
CPT/HCPCS: 80307; 87491; 87591; 87086

== ENCOUNTER 2022-09-03 02:47 | Outpatient (CLI) | payer BC, SELFPAY ==
[2022-09-03 09:22] LABS: HCT 36.3 % (36.0-46.0); HGB 11.9 g/dL (11.2-15.7); MCH 29.8 pg (27.0-33.0); MCHC 32.8 % (32.0-36.0); MCV 91 fL (80-95); MPV 11.4 fL (8.0-11.0); Platelet Count 202 10^3/uL (130-400); RBC 3.99 10^6/uL (3.93-5.22); RDW 12.5 % (11.7-14.6); RDW-SD 41.6 fL
[2022-09-03 09:47] LABS: Glucose,1 Hr (Glucola) 189 mg/dL (80-140)
== END 2022-09-03 02:48 | disposition home or self-care (01) ==
LOC: LBO 02:47
PROVIDERS: PCP Nurse Practitioner Family; Visit Provider Advanced Practice Midwife
DX: Z34.93 Encounter for supervision of normal pregnancy, unspecified, third trimester (principal); Z3A.28 28 weeks gestation of pregnancy
CPT/HCPCS: 36415; 82950; 85027

== ENCOUNTER 2022-09-10 02:39 | Outpatient (CLI) | payer BC, SELFPAY ==
[2022-09-10 11:18] LABS: Glucose 1 Hour 186 mg/dL
[2022-09-10 13:08] LABS: Glucose 3 Hour 94 mg/dL
== END 2022-09-10 02:40 | disposition home or self-care (01) ==
PROVIDERS: PCP Nurse Practitioner Family; Visit Provider Advanced Practice Midwife
DX: O26.893 Other specified pregnancy related conditions, third trimester (principal); R73.09 Other abnormal glucose; Z3A.29 29 weeks gestation of pregnancy
CPT/HCPCS: 36415; 82951

== ENCOUNTER 2022-10-28 01:47 | Outpatient (CLI) | payer BC, SELFPAY ==
--- NOTE | 2022-10-28 07:00 | DI.US_ITS ---
Exam(s) US OB RUDY WEIGHT EXAM: US OB RUDY WEIGHT CLINICAL HISTORY: growth and RUDY,gestational diabetes,O24.419. TECHNIQUE: Transabdominal obstetrical ultrasound performed. COMPARISON: US US OB 2-3 TRIMESTER from 06/25/2022 FINDINGS: Number of fetuses: 1 position: Cephalic. Placental location: There is a grade 1 posterior placenta. No evidence of previa. BIOMETRIC DATA: BPD: 8.4cm, 33weeks 6days HC: 31.81cm, 35weeks 6days AC: 32.02cm, 36weeks FL: 6.71cm, 34weeks 4days EFW: 2,649.14g, 5lb 14.15oz, 26.8% Composite Age: 35weeks 1day JEANNA: 12/01/2022 Heart Rate: 142bpm Amniotic fluid index: 19.68cm. Visually, amount of fluid is within normal limits. IMPRESSION: 1. Single live intrauterine gestation as above. 2. Estimated weight is 2649gms. This is the 27th percentile. 3. Amniotic fluid index is 19.7 cm. Visually within normal limits. DATA REPOSITORY:
== END 2022-10-28 02:07 ==
LOC: DI 01:48
PROVIDERS: PCP Nurse Practitioner Family; Visit Provider Advanced Practice Midwife
DX: O24.419 Gestational diabetes mellitus in pregnancy, unspecified control (principal)
CPT/HCPCS: 76816

== ENCOUNTER 2022-10-28 09:50 | Outpatient (CLI) | payer BC, SELFPAY ==
[2022-10-28 09:59] VITALS: BP 111/68; PULSE 73; TEMP 36.7
[2022-10-28 10:26] VITALS: BP 111/68; PULSE 73
[2022-10-28 11:10] VITALS: BP 111/68; PULSE 73; TEMP 36.7
--- NOTE | 2022-10-28 11:10 | W.OBNST ---
Date of service: 10/28/22 Time of Service: 11:10 NST Evaluation Reason for NST Reasons for Nonstress Test: GDM-DIET CONTROLLED Gestational Age Gestational Age in Weeks and Days: 36 Weeks and 2Days Test and Monitor Explained Test/Monitor Explained: Test Explained, Monitor Explained and Patient Verbalized Understanding Vital Signs Blood Pressure: 111/68 Pulse: 73 Temperature: 98.1 F NST Information Date on Monitor: 10/28/22 Time on Monitor: 09:55 Date off Monitor: 10/28/22 Time off Monitor: 10:25 Total Time on Monitor: 30 NST Interventions: None NST Evaluation Patient States Movement: Present FHR Baseline: 135 Variability: Moderate 6-25 bpm Accelerations: 15x15 Decelerations: None NST Results: Reactive Note NST Note Note: NST due to gestational diabetes NST Reviewed and Verified by: Rosamaria Shields
== END 2022-10-28 10:30 | disposition home or self-care (01) ==
LOC: BCD 09:51 → OBS 09:58
PROVIDERS: PCP Nurse Practitioner Family; Visit Provider Advanced Practice Midwife
DX: O24.410 Gestational diabetes mellitus in pregnancy, diet controlled (principal); Z3A.36 36 weeks gestation of pregnancy
CPT/HCPCS: 59025

== ENCOUNTER 2022-10-28 19:47 | Outpatient (REF) | payer BC, SELFPAY ==
[2022-10-28 13:44] LABS: *AMPHETAMINES SCREEN URINE Negative (Negative); *BARBITURATES SCREEN URINE Negative (Negative); *BENZODIAZEPINES SCREEN URINE Negative (Negative); Cannabinoids THC Negative (Negative); Cocaine Screen,Urine Negative (Negative); METHADONE URINE SCREEN Negative (Negative); OPIATES URINE SCREEN Negative (Negative)
[2022-10-28 13:45] LABS: Tricyclic Antidepressants Negative (Negative)
[2022-11-01 16:20] LABS: Buprenorphine Negative ng/mL (Cutoff: 5.0); Norbuprenorphine Negative ng/mL (Cutoff: 2.5)
== END 2022-10-28 19:48 | disposition home or self-care (01) ==
LOC: LBN 19:47
PROVIDERS: PCP Nurse Practitioner Family; Visit Provider Advanced Practice Midwife
DX: Z34.93 Encounter for supervision of normal pregnancy, unspecified, third trimester (principal)
CPT/HCPCS: 80307; 80348; 87081

== ENCOUNTER 2022-10-31 14:04 | Outpatient (CLI) | payer BC, SELFPAY ==
[2022-10-31 14:31] VITALS: BP 106/67; PULSE 82; TEMP 37.1
[2022-10-31 14:34] VITALS: BP 106/67; PULSE 82
--- NOTE | 2022-10-31 15:34 | W.OBNST ---
Date of service: 10/31/22 Time of Service: 15:34 NST Evaluation Reason for NST Reasons for Nonstress Test: OTHER, SEE COMMENT Reason for NST Other: Rule out labor Gestational Age Gestational Age in Weeks and Days: 36 Weeks and 5Days Test and Monitor Explained Test/Monitor Explained: Test Explained, Monitor Explained and Patient Verbalized Understanding Vital Signs Blood Pressure: 106/67 Pulse: 82 Temperature: 98.7 F NST Information Date on Monitor: 10/31/22 Time on Monitor: 14:30 Date off Monitor: 10/31/22 Time off Monitor: 14:52 Total Time on Monitor: 22 NST Interventions: None NST Evaluation Patient States Movement: Present FHR Baseline: 150 Variability: Moderate 6-25 bpm Accelerations: 15x15 Decelerations: None NST Results: Reactive Note NST Note Note: SSE: neg pooling, neg ferns, neg nitrizine Cvx 1/50% vtx -4 soft & posterior, intact membranes discharged to home, f/up as scheduled NST Reviewed and Verified by: Mary Thomas
[2022-10-31 15:35] VITALS: BP 106/67; PULSE 82; TEMP 37.1
== END 2022-10-31 15:10 | disposition home or self-care (01) ==
LOC: BCD 14:05 → OBS 14:31
PROVIDERS: PCP Nurse Practitioner Family; Visit Provider Advanced Practice Midwife
DX: O47.03 False labor before 37 completed weeks of gestation, third trimester (principal); Z3A.36 36 weeks gestation of pregnancy
CPT/HCPCS: 59025

== ENCOUNTER 2022-11-04 07:11 | Outpatient (CLI) | payer BC, SELFPAY ==
[2022-11-04 09:53] VITALS: BP 120/68; PULSE 82; TEMP 36.8
[2022-11-04 09:56] VITALS: BP 120/68; PULSE 82
--- NOTE | 2022-11-04 10:26 | W.OBNST ---
Date of service: 11/04/22 Time of Service: 10:26 NST Evaluation Reason for NST Reasons for Nonstress Test: GDM-INSULIN Gestational Age Gestational Age in Weeks and Days: 37 Weeks and 2Days Test and Monitor Explained Test/Monitor Explained: Test Explained, Monitor Explained and Patient Verbalized Understanding Vital Signs Blood Pressure: 120/68 Pulse: 82 Temperature: 98.2 F NST Information Date on Monitor: 11/04/22 Time on Monitor: 09:53 Date off Monitor: 11/04/22 Time off Monitor: 10:14 Total Time on Monitor: 21 NST Interventions: None Contraction Frequency: 3-6 irregular NST Evaluation Patient States Movement: Present FHR Baseline: 130 Variability: Moderate 6-25 bpm Accelerations: 15x15 Decelerations: None NST Results: Reactive Note N/A NST Note Note: Blood sugars normoglycemic at 8 units lispro insulin hs RTO 11/11 for next NST IOL scheduled for 11/20/22 NST Reviewed and Verified by: Mary Thomas
[2022-11-04 10:27] VITALS: BP 120/68; PULSE 82; TEMP 36.8
== END 2022-11-04 10:19 | disposition home or self-care (01) ==
LOC: BCD 07:12 → OBS 09:52
PROVIDERS: PCP Nurse Practitioner Family; Visit Provider Advanced Practice Midwife
DX: O24.414 Gestational diabetes mellitus in pregnancy, insulin controlled (principal); Z3A.37 37 weeks gestation of pregnancy
CPT/HCPCS: 59025

== ENCOUNTER 2022-11-11 07:32 | Outpatient (CLI) | payer BC, SELFPAY ==
[2022-11-11 09:51] VITALS: BP 130/74; PULSE 98; TEMP 36.8
[2022-11-11 09:59] VITALS: BP 130/74; PULSE 98
--- NOTE | 2022-11-11 10:27 | W.OBNST ---
Date of service: 11/11/22 Time of Service: 10:27 NST Evaluation Reason for NST Reasons for Nonstress Test: GDM-INSULIN Gestational Age Gestational Age in Weeks and Days: 38 Weeks and 2Days Test and Monitor Explained Test/Monitor Explained: Test Explained, Monitor Explained and Patient Verbalized Understanding Vital Signs Blood Pressure: 130/74 Pulse: 98 Temperature: 98.2 F Urine Results Urine Protein: Negative Urine Ketones: Negative Urine Glucose: Negative Urine Blood: Negative NST Information Date on Monitor: 11/11/22 Time on Monitor: 09:53 Date off Monitor: 11/11/22 Time off Monitor: 10:16 Total Time on Monitor: 23 NST Interventions: None Contraction Frequency: 1-5 NST Evaluation Patient States Movement: Present FHR Baseline: 135 Variability: Moderate 6-25 bpm Accelerations: 15x15 Decelerations: None NST Results: Reactive Note N/A NST Note Note: NST is reactive and reassuring. No concerns, is unaware of contractions. BG's have been WNL on current insulin dose. Will return 11/14 and 11/18 for NST prior to IOL on 11/20. NST Reviewed and Verified by: Rosamaria Almonte
[2022-11-11 10:28] VITALS: BP 130/74; PULSE 98; TEMP 36.8
== END 2022-11-11 10:28 | disposition home or self-care (01) ==
LOC: BCD 07:33 → OBS 09:23
PROVIDERS: PCP Nurse Practitioner Family; Visit Provider Advanced Practice Midwife
DX: O24.414 Gestational diabetes mellitus in pregnancy, insulin controlled (principal); Z3A.38 38 weeks gestation of pregnancy
CPT/HCPCS: 59025

== ENCOUNTER 2022-11-14 08:06 | Outpatient (CLI) | payer BC, SELFPAY ==
[2022-11-14 10:03] VITALS: BP 125/71; PULSE 83; TEMP 37
[2022-11-14 10:20] VITALS: BP 125/71; PULSE 83
--- NOTE | 2022-11-14 10:45 | W.OBNST ---
Date of service: 11/14/22 Time of Service: 10:45 NST Evaluation Reason for NST Reasons for Nonstress Test: GDM-INSULIN Gestational Age Gestational Age in Weeks and Days: 38 Weeks and 5Days Test and Monitor Explained Test/Monitor Explained: Test Explained and Monitor Explained Vital Signs Blood Pressure: 125/71 Pulse: 83 Temperature: 98.6 F NST Information Date on Monitor: 11/14/22 Time on Monitor: 10:06 Date off Monitor: 11/14/22 NST Interventions: None NST Evaluation Patient States Movement: Present FHR Baseline: 125 Variability: Moderate 6-25 bpm Accelerations: 15x15 Decelerations: None NST Results: Reactive Note N/A NST Note Note: Diana is here for NST due to gestational diabetes, diet controlled. Reactive NST. Continue with twice weekly NST and IOL planned for 11/20/22 NST Reviewed and Verified by: Rosamaria Shields
[2022-11-14 10:46] VITALS: BP 125/71; PULSE 83; TEMP 37
== END 2022-11-14 10:35 | disposition home or self-care (01) ==
LOC: BCD 08:06 → OBS 10:01
PROVIDERS: PCP Nurse Practitioner Family; Visit Provider Advanced Practice Midwife
DX: O24.414 Gestational diabetes mellitus in pregnancy, insulin controlled (principal); Z3A.38 38 weeks gestation of pregnancy
CPT/HCPCS: 59025

== ENCOUNTER 2022-11-18 07:33 | Outpatient (CLI) | payer BC, SELFPAY ==
[2022-11-18 09:57] VITALS: BP 127/73; PULSE 86; TEMP 37
[2022-11-18 10:17] VITALS: BP 127/73; PULSE 86
--- NOTE | 2022-11-18 11:12 | W.OBNST ---
Date of service: 11/18/22 Time of Service: 11:13 NST Evaluation Reason for NST Reasons for Nonstress Test: GDM-INSULIN Gestational Age Gestational Age in Weeks and Days: 39 Weeks and 2Days Test and Monitor Explained Test/Monitor Explained: Test Explained, Monitor Explained and Patient Verbalized Understanding Vital Signs Blood Pressure: 127/73 Pulse: 86 Temperature: 98.6 F NST Information Date on Monitor: 11/18/22 Time on Monitor: 10:00 Date off Monitor: 11/18/22 Time off Monitor: : Total Time on Monitor: 31 NST Interventions: None NST Evaluation Patient States Movement: Present FHR Baseline: 125 Variability: Moderate 6-25 bpm Accelerations: 15x15 Decelerations: None NST Results: Reactive Note N/A NST Note Note: NSt due to gestational diabetes. SVE 2/50/-2/soft. return to center in 2 days for IOL NST Reviewed and Verified by: Rosamaria Shields
[2022-11-18 11:14] VITALS: BP 127/73; PULSE 86; TEMP 37
== END 2022-11-18 10:35 | disposition home or self-care (01) ==
LOC: BCD 07:37 → OBS 09:55
PROVIDERS: PCP Nurse Practitioner Family; Visit Provider Advanced Practice Midwife
DX: O24.414 Gestational diabetes mellitus in pregnancy, insulin controlled (principal); Z3A.39 39 weeks gestation of pregnancy
CPT/HCPCS: 59025

== ENCOUNTER 2022-11-20 06:34 | Inpatient (IN) | payer BC, SELFPAY ==
[2022-11-20] VITALS (18 sets, daily range): BP systolic 104–130; BP diastolic 55–78; PULSE 70–98; RESP 14–18; TEMP 36.4–37.2
[2022-11-20 08:45] LABS: Source Nasal/Nares
[2022-11-20 08:46] LABS: HCT 39.7 % (36.0-46.0); HGB 12.9 g/dL (11.2-15.7); MCH 29.5 pg (27.0-33.0); MCHC 32.5 % (32.0-36.0); MCV 91 fL (80-95); MPV 12.5 fL (8.0-11.0); Platelet Count 127 10^3/uL (130-400); RBC 4.38 10^6/uL (3.93-5.22); RDW 13.2 % (11.7-14.6); RDW-SD 44.5 fL; WBC 7.02 10^3/uL (4.4-10.8)
--- NOTE | 2022-11-20 08:46 | HPE_ITS ---
Date of service: 11/20/22 Time of Service: 08:46 Assessment and Plan Assessment and plan (1) Gestational diabetes: Status: Acute Assessment and plan: Second trimester onset of GDM, eventually requiring a bedtime dose of insulin to control fasting glucose interval growth ultrasound in third trimester revealed AGA fetus with nml RUDY IOL scheduled for today (2) Encounter for induction of labor: Status: Acute Assessment and plan: A: 27 yo @ 39+4 wks IOL for GDM, favorable w/morgan score=8 GBS neg, low risk SD, increased risk for PPD d/t IOL process Category 1 tracing P: Observe for spontaneous cervical change, Consider AROM vs half dose misoprostel Pt prefers to avoid pitocin infusion for induction if possible Dr. Al available to consultation as needed Anticipate OB-HPI Labor/Delivery History of Present Illness Reason for Visit: GDM at Term,Requiring Insulin Chief Complaint: Scheduled Induction of Labor Indication for Induction: Gestational Diabetes (requiring insulin for control). JEANNA Calculator Estimated Delivery Date Method Current WG Current Estimate 11/23/22 LMP (Certain) 39w 4d Other Estimates 11/28/22 Ultrasound #1 38w 6d History of Present Expected Delivery Route/Plan - CNM FOB/ - Hamzah Shah (2nd child together) KATERIN Monreal yes to circ GDM at 28 wks, requiring insulin for control GBS negative Specific Issues/Plan 1. Declines serum genetic screening tests 2. Diana and Hamzah vaccinated against covid, Diana has not received booster. 3. Occasional AWAD's, magnesium supplement is helpful 4. Will try , poor success last time, declines LC consult 5. Allergy to pertussis vaccine - receives Td. 6. 1 hr glucose 189, 3 hr- 82, 186, 166 = GDM, start testing QID, nutrition referral. Twice-weekly NSTs ordered 10/21/22. Fasting CBGs. Novolin-N 4 units at bedtime initiated. 6a. Insulin increased to 8 u at HS 6b. Growth US - EFW 27th %ile and RUDY - 19 Assessment: History Reviewed & Current Informed Consent Informed Consent: Induction of Labor (reviewed misoprostel, AROM and/or pitocin infusion as appropriate options in IOL) and Risk,Benefits,Alternatives Discussed Review of Systems Narrative: ROS completed and found to be noncontributory other then HPI PFSH All Active Problems (Updated 11/20/22 @ 08:53 by Mary Thomas) Encounter for induction of labor (Acute) medical indication: GDM requiring insulin Gestational diabetes (Acute) COVID-19 affecting in second trimester (Acute) + 08/12/22 (Acute) Medical History (Updated 11/20/22 @ 08:53 by Mary Thomas) Elevated glucose tolerance test Family History (Updated 03/28/22 @ 11:21 by Rosamaria Almonte CNM) Maternal Uncle Hypertension Hodgkin lymphoma Paternal Aunt Pancreatic cancer Mother No problems noted. Father Hypertension Daughter No problems noted. Maternal Grandfather No problems noted. Paternal Grandfather Prostate cancer Hypertension Maternal Grandfather No problems noted. Paternal Grandmother No problems noted. Social History Smoking/Tobacco Use Status: Never Second Hand Exposure: Yes Smoking risk assessment performed?: Yes Alcohol Intake: current Alcohol Intake frequency: a few times a month Drug use: Never Substance use type: does not use Caregiver/Support person: No Household members: spouse and children Housing: house Communication Needs: Corrective Lenses Do you need help understanding health information?: Never Pets and animals: Yes Pets and animals: cat(s), dog(s) and horse(s) Sexually active: Yes Do you think of yourself as: straight/heterosexual Current gender identity: female What is your relationship status?: How often do you talk on the phone with friends or family?: three or more times per week How often do you get together with friends or relatives?: three or more times per week How often do you attend evangelical or yazdanism services?: decline to answer Do you belong to any clubs or organized social groups?: no Panel score (0-1 are the most socially isolated patients): 2 What type of physical activity do you participate in: walking and running Duration: 15-30 minutes/day Frequency: 1-2 times per week Seatbelt use: always Helmet use: Yes Helmet use: always Drive intox or ride w/intox courtesy van driver: No Do you feel safe at home: Yes Do you feel safe in your relationship?: Yes Female Reproductive History Menstrual control method: progestin IUCD History History 3 Para 1 Hx # Term Pregnancies 1 Multiple births 0 Hx # Pregnancies 0 Ectopic pregnancies 0 AB induced 0 Hx Number of Living Children 1 AB spontaneous 1 Past Pregnancies Del. Date GA/Weeks # Preg Succ Route Wgt Sex Labor Lgth Anesth esia Location Prov Complic 11/07/20 38 No Yes vaginal 6 lb 10.88 oz Female 6 hr 54 min SAMMY [place] Delivery Date: 11/07/20 Last Updated by: Rosamaria Shields CNM nmgurjit delivery, increased bleeding controlled with pit & methergine, Eccentric 3 VC, succenturiate lobe. Daisy Chantelle EBL 400 Meds Allergies and Home Medications Allergies Allergy/AdvReac Type Severity Reaction Status Date / Time pertussis vaccine,adsorbed Allergy Intermediate seizures Verified 11/11/22 10:21 Home Medications Medication Instructions Recorded Confirmed Type prenat.vits,sherrie,lad-[id number]-[id number] 1 tab PO DAILY 03/28/22 11/20/22 History docusate sodium 100 mg capsule 100 mg PO DAILY PRN constipation 08/20/22 11/20/22 Rx (Colace) #60 caps magnesium oxide 500 mg tablet 200 mg PO DAILY #30 tabs 08/20/22 11/20/22 Rx blood-glucose meter (FreeStyle #1 ea 09/10/22 11/18/22 Rx Lite Meter kit) blood sugar diagnostic (FreeStyle #100 ea 10/21/22 11/18/22 Rx Lite Strips) lancets 28 gauge (FreeStyle #100 ea 10/21/22 11/18/22 Rx Lancets) insulin lispro 100 unit/mL 1 sliding scale dose subcut 10/28/22 11/18/22 Rx subcutaneous pen (Humalog KwikPen .COMPLEX #2 mL (U-100) Insulin) Exam Physical Exam Vital signs: Temp Pulse Resp BP 99.0 F 82 14 130/66 11/20/22 08:11 11/20/22 08:11 11/20/22 08:11 11/20/22 08:11 Vital Signs Reviewed: Yes Constitutional Constitutional: no acute distress, obese and cooperative Detailed Labor and Delivery Exam Dilation: 3 Effacement (%): 90 station: -2 Cervix position: mid Consistency: soft MORGAN Score(Cervical Ripeness Score): 8 Amniotic Membrane Status: Intact Monitor Mode: External Contraction Frequency(min): q 3-4 min Contraction Duration(sec): 50-60 Contraction Intensity: Mild Fetus A Heart Rate Baseline: 135 Monitor Accelerations: 15 X 15 Monitor Decelerations: None Variability: Moderate (6-25 BPM) Categories: Category I Est. Weight: 7 lb 4.404 oz Est. Weight: 3300 gms HEENT Exam HEENT Exam: Normal Neck Exam Neck Exam: Normal Chest/Brest/Axilla Exam Chest Exam: Normal Breast Exam Breast Exam: Not Done Respiratory Exam Respiratory Exam: Normal Cardiovascular Exam Cardiovascular Exam: Normal Abdominal Exam Abdominal Exam: Normal (Gravid, nontender) Rectal Exam Rectal Exam: Normal Exam Exam: Normal Extremities Exam Extremities Exam: Normal Back/Spine/Pelvis Exam Back Exam: Normal Pelvis Adequate: Yes (proven to ) Skin Exam Skin Exam: Normal Neurological Exam Neurological Exam: Normal Psychiatric Exam Psychiatric Exam: Normal Results Results Group Beta Strep: Negative Blood Type: O+ Rubella Status: Immune Varicella Immunity: Immune Risk Assessment Risk for Shoulder Dystocia Historical/Initial OB: NEGATIVE FOR: Pelvic Abnormality, Pre- BMI>30, Previous Shoulder Dystocia or Previous Macrosomia Increased Risk?: No Delivery Plan @ 36wks: NVD expected, currently weight 27% Risk for Pre-Eclampsia Date Initiated/Initials: KM 05/02 Yes, if one or more: NEGATIVE FOR: Hx Pre-E/Gest HTN, Chronic HTN, Multiple Gestation, Pre-gestational DM, Renal Disease, Systemic Lupus or APA Syndrome Yes, if 2 or more: NEGATIVE FOR: Nulliparity, Age>= 35 yrs, >10yr btwn pregnancies, BMI>30, ethinicty, Mother/Sister w/ Pre-E or Previous IUGR Risk for Post- Hemorrhage Initial: NEGATIVE FOR: Multiple Gestation, Previous PPH, Known Clotting Deficiency, Grand Multiparity or Anticoagulation At Risk?: No Risks Reviewed Risks Reviewed Upon Admission: Yes
[2022-11-20 09:17] LABS: COVID-19 PCR Negative (Negative)
[2022-11-20] MEDS: miSOPROStol 25 MCG TAB PO (11:38)
--- NOTE | 2022-11-20 15:43 | W.PM.OBNL1 ---
Date of service: 11/20/22 Time of Service: 15:43 Informed Consent Informed Consent: Induction of Labor (reviewed misoprostel, AROM and/or pitocin infusion as appropriate options in IOL) and Risk,Benefits,Alternatives Discussed Pelvic Exam Dilation: 4 Effacement (%): 90 station: -2 Cervix Position: anterior Consistency: soft Contractions Monitor Mode: External Contraction Frequency(min): irregular q 3-5 Intensity: Mild Fetus A Monitor: External (US) Heart Rate Baseline: 140 Variability: Moderate (6-25 BPM) Categories: Category I Accelerations: 15 X 15 Decelerations: None Amniotic Membrane Status: Ruptured Rupture Method: Artifical Amniotic Fluid: Clear Amount: large Date of Membrane Rupture: 11/20/22 Time of Membrane Rupture: 15:24 Assessment and Plan Assessment and plan (1) Encounter for induction of labor: Status: Acute Assessment and plan: A: IOL for GDM, multipara P: Favorable cvx, miso given 25 mcg x1 PO Cvx changed from 3 to 4 cm dilation AROM performed after consent of pt for large amt clear fluid Category 1 tracing Anticipate Objective Abnormal lab results 11/20/22 Range/Units 08:35 Plt Count 127 L (130-400) 10^3/uL MPV 12.5 H (8.0-11.0) fL Temp Pulse Resp BP 98.1 F 70 16 116/68 11/20/22 11:09 11/20/22 11:11 11/20/22 11:09 11/20/22 11:11 Laboratory Results WBC 7.02 10^3/uL (4.4-10.8) 11/20/22 08:35 RBC 4.38 10^6/uL (3.93-5.22) 11/20/22 08:35 Hgb 12.9 g/dL (11.2-15.7) 11/20/22 08:35 Hct 39.7 % (36.0-46.0) 11/20/22 08:35 MCV 91 fL (80-95) 11/20/22 08:35 MCH 29.5 pg (27.0-33.0) 11/20/22 08:35 MCHC 32.5 % (32.0-36.0) 11/20/22 08:35 RDW 13.2 % (11.7-14.6) 11/20/22 08:35 Plt Count 127 10^3/uL (130-400) L 11/20/22 08:35 MPV 12.5 fL (8.0-11.0) H 11/20/22 08:35 COVID-19 Source Nasal/Nares 11/20/22 08:30 SARS-CoV-2 (PCR) Negative (Negative) 11/20/22 08:30 Patient ABO/Rh O Positive 11/20/22 08:35 Antibody Screen NEGATIVE 11/20/22 08:35 Vital Signs Reviewed: Yes Objective Narrative Objective Narrative: Pt has been moving around room, sitting on physioball 1 hr postprandial glucose after lunch was 88 Afebrile, normotensive Subjective Interval history since last seen: Reports mildly increased lower abd cramping
--- NOTE | 2022-11-20 18:40 | OBVDS_ITS ---
Date of service: 11/20/22 Time of Service: 18:40 OB Labor/ Delivery Information Baby A Delivery Delivery Method: Spontaneaous Presentation: Cephalic Cephalic Position: Vertex Vertex Position: Right Occipital Anterior Cord Description-Baby A: 3 Vessels Amniotic Fluid: Clear Estimated Blood Loss: 200 ml Delivery Outcome: Liveborn Transferred: Remains with Mother Note: Pt labored in shower until feeling urges to push, intermittent auscultation remained reassuring, pt assisted to bed and examined for 7/100% -1, she remained on the bed using nitrous to good effect and progressed quickly. 2nd stage huddle completed, shortly thereafter of a vigorous male infant over intact perineum, anterior shoulder delivered easily and to mother's arms immediately. pitocin bolus begun infusing via previously established IV access, cord ceased pulsating and was clamped and cut by FOB. Alondra placenta delivered with gently cord traction intact with 3VC, perineum and vaginal vault inspected with no lacerations visualized. Strong family bonding oberserved, apgars 9/10, weight 3725 gms. Providers Nurse [place] Agent: Mary Thomas Nurse: Edel Shleby Nurse: Kalin Can Other: Armida Yen Labor/Delivery Information Number of Babies in Womb: 1 Steroids Given: None Group Beta Strep: Negative Antibiotics Administered: No Rubella Status: Immune Blood Type: O+ Varicella Immunity: Immune Medication in Delivery: pitocin bolus Shoulder Dystocia: No Stages of Labor Onset of Labor Date: 11/20/22 Onset of Labor Time: 14:00 Complete Dilatation Date: 11/20/22 Complete Dilatation Time: 18:00 Labor - Stage 1 Duration: 4 hours and 0 minutes ROM Baby A: 11/20/22 ROM Baby A: 15:24 Delivery Date-Baby A: 11/20/22 Infant Delivery Time-Baby A: 18:14 Labor Stage 2 Duration: 14 minutes Placenta Delivery Date-Baby A: 11/20/22 Placenta Delivery Time-Baby A: 18:28 Labor-Stage 3 Duration: 14 minutes Total Length of Labor-Baby A: 4 hours and 14 minutes Placenta Status: Delivered Baby A Infant Gender: Male Gestational Age in Weeks/Days: 39 Weeks and 4 Days weight: 8 lb 3.396 oz Weight Comment: 3725 gms Length-Baby A: 18.11 in Score-1 Minute Interval(Baby A) Heart Rate-1 minute: 100 BPM or Greater Respiratory Effort- 1 minute: Spontaneous/Strong Cry Muscle Tone-1 minute: Active Movement Reflex Response-1 minute: Prompt Response Color-1 minute: Bluish Hands or Feet Score-5 Minute Interval(Baby A) Heart Rate- 5 minute: 100 BPM or Greater Respiratory Effort-5 minute: Spontaneous/Strong Cry Muscle Tone-5 minute: Active Movement Reflex Response-5 minute: Prompt Response Color-5 minute: [place]/No Cyanosis
[2022-11-21 02:31] VITALS: BP 116/77; PULSE 71; RESP 18
[2022-11-21 07:58] VITALS: BP 114/79; PULSE 55; RESP 14; TEMP 36.7; O2SAT 98
--- NOTE | 2022-11-21 08:34 | W.PM.OBPNV1 ---
Date of service: 11/21/22 Time of Service: 08:34 Assessment and Plan Assessment and plan (1) Term delivered: Status: Acute Assessment and plan: A: Nml PPD#1, nml recovery Breastfeding going well Satisfied with experience P: Plan for discharge this evening at pt request circumcision planned prior to discharge Supports in place at home Pt plans to use POP's for BCM Written instructions reviewed and given to pt F/up at 2 & 6 wks Subjective Subjective Patient comments: No complaints, Pain well controlled, Tolerating diet and Flatus present [place] baby status: Doing well, Nursing well, Rooming in and Strong Bonding Observed [place] feeding status: Exclusively breast feeding Exam Physical Exam Vital signs: Temp Pulse Resp BP Pulse Ox 98.1 F 55 L 14 114/79 98 11/21/22 07:58 11/21/22 07:58 11/21/22 07:58 11/21/22 07:58 11/21/22 07:58 Vital Signs Reviewed: Yes Constitutional Constitutional: no acute distress and cooperative HEENT Exam HEENT Exam: Normal Neck Exam Neck Exam: Normal Breast Exam Bilateral: Breast Exam: Normal and Soft Nipple Exam: Normal and Uninjured Respiratory Exam Respiratory Exam: Normal Cardiovascular Exam Cardiovascular Exam: Normal Abdominal Exam Abdomen: Other (soft and nontender) Fundal Exam Fundus: Below Umbilicus and Firm Rectal Exam Rectal Exam: Normal Exam Perineum: Intact and Normal Extremities Exam Extremity Exam: Normal Back/Spine/Pelvis Exam Back Exam: Normal Skin Exam Skin Exam: Normal Neurological Exam Neurological Exam: Normal Psychiatric Exam Psychiatric Exam: Normal
--- NOTE | 2022-11-21 19:11 | W.PM.OBDISCH ---
Date of service: 11/21/22 Time of Service: 19:11 DS: Diagnosis Discharge Diagnosis (1) Term delivered: Status: Acute Discharge Plan Disposition Condition: Good Discharge Details Reason For Visit: GDM at Term,Requiring Insulin Admit Date/Time: 11/20/22 06:34 Admit Provider: Mary Thomas Attending Provider: Mary Thomas Primary Care Provider: Emery Perry Hospital Course Hospital Course: Induction of labor successful with on HD#1, discharge pt to home on HD#2 at her request, nml course. Home Meds and New Rx's Prescriptions: No Action prenat.vits,sherrie,[id number] Tablet 1 tab PO DAILY magnesium oxide 500 mg tablet 200 mg PO DAILY Qty: 30 0RF docusate sodium [Colace] 100 mg capsule 100 mg PO DAILY PRN (Reason: constipation) Qty: 60 0RF Label Comments: hasn't taken in over a week Discharge Instructions Additional Instructions: Please keep 2 & 6 wk appointments with the midwives, call for any and all concerns. Stand Alone Forms: BC Instructions, BC Post Vaginal Deliver Activity:: Activity as Tolerated Equipment/Supplies:: No Equipment Needed Diet:: Normal Diet OB:DS Summary Summary Vaginal Delivery Method: Spontaneaous Episiotomy Description: None Laceration Description: None Laceration Extension: N/A Contraception Discussed Contraception Discussed: Yes Contraceptive Plan: Control Pill/Patch, [place] Gender-Baby A: Male weight: 8 lb 3.396 oz Status at Discharge Functional status at discharge: independent ambulation Overall status at discharge: patient is progressing back to baseline Mental Status: mental status grossly normal Speech and Movement: speech and movement normal and speech clear Mood: congruent mood Affect: normal affect Exam Physical Exam Vital signs: Temp Pulse Resp BP Pulse Ox 98.1 F 55 L 14 114/79 98 11/21/22 07:58 11/21/22 07:58 11/21/22 07:58 11/21/22 07:58 11/21/22 07:58 Constitutional Constitutional: no acute distress and cooperative HEENT Exam HEENT Exam: Normal Neck Exam Neck Exam: Normal Breast Exam Bilateral: Breast Exam: Normal and Soft Respiratory Exam Respiratory Exam: Normal Cardiovascular Exam Cardiovascular Exam: Normal Abdominal Exam Abdomen: Other (soft and nontender) Fundal Exam Fundus: Below Umbilicus and Firm Rectal Exam Rectal Exam: Normal Exam Perineum: Intact and Normal Extremities Exam Extremity Exam: Normal Back/Spine/Pelvis Exam Back Exam: Normal Skin Exam Skin Exam: Normal Neurological Exam Neurological Exam: Normal Psychiatric Exam Psychiatric Exam: Normal PFSH All Active Problems (Updated 11/21/22 @ 08:37 by Mary Thomas) Term delivered (Acute) Medical History (Updated 11/21/22 @ 08:37 by Mary Thomas) COVID-19 affecting in second trimester + 08/12/22 Elevated glucose tolerance test Encounter for induction of labor medical indication: GDM requiring insulin Gestational diabetes Family History (Updated 03/28/22 @ 11:21 by Rosamaria Almonte CNM) Maternal Uncle Hypertension Hodgkin lymphoma Paternal Aunt Pancreatic cancer Mother No problems noted. Father Hypertension Daughter No problems noted. Maternal Grandfather No problems noted. Paternal Grandfather Prostate cancer Hypertension Maternal Grandfather No problems noted. Paternal Grandmother No problems noted. Social History Smoking/Tobacco Use Status: Never Second Hand Exposure: Yes Smoking risk assessment performed?: Yes Alcohol Intake: former Drug use: Never Substance use type: does not use Caregiver/Support person: No Household members: spouse and children Housing: house Communication Needs: Corrective Lenses Do you need help understanding health information?: Never Pets and animals: Yes Pets and animals: cat(s), dog(s) and horse(s) Sexually active: Yes Do you think of yourself as: straight/heterosexual Current gender identity: female What is your relationship status?: How often do you talk on the phone with friends or family?: three or more times per week How often do you get together with friends or relatives?: three or more times per week How often do you attend mu-ism or latter day services?: decline to answer Do you belong to any clubs or organized social groups?: no Panel score (0-1 are the most socially isolated patients): 2 What type of physical activity do you participate in: walking and running Duration: 15-30 minutes/day Frequency: 1-2 times per week Seatbelt use: always Helmet use: Yes Helmet use: always Drive intox or ride w/intox parts delivery driver: No Do you feel safe at home: Yes Do you feel safe in your relationship?: Yes Female Reproductive History Menstrual control method: progestin IUCD History History 3 Para 1 Hx # Term Pregnancies 1 Multiple births 0 Hx # Pregnancies 0 Ectopic pregnancies 0 AB induced 0 Hx Number of Living Children 1 AB spontaneous 1 Past Pregnancies Del. Date GA/Weeks # Preg Succ Route Wgt Sex Labor Lgth Anesthesia Location Prov Complic 11/07/20 38 No Yes vaginal 6 lb 10.88 oz Female 6 hr 54 min SAMMY Goodwin Delivery Date: 11/07/20 Last Updated by: Rosamaria Shields CNM nmgurjit delivery, increased bleeding controlled with pit & methergine, Eccentric 3 VC, succenturiate lobe. Daisy Lockhart EBL 400 DS: Data Vitals/I&O Vitals and I&O: Vital Signs Temperature 98.1 F 11/21/22 07:58 Pulse 55 L 11/21/22 07:58 Pulse Rhythm Regular 11/21/22 09:21 Respiratory Rate 14 11/21/22 07:58 Respiratory Depth Normal 11/21/22 09:21 Blood Pressure 114/79 11/21/22 07:58 Blood Pressure Mean 90 11/21/22 07:58 Pulse Oximetry 98 11/21/22 07:58 Oxygen Delivery Method Room Air 11/20/22 11:09 Oxygen Flow Rate 0 11/20/22 11:09 Pain Level 0 11/20/22 11:09 Comment 11/20/22 15:45 Intake & Output 11/20/22 11/21/22 11/21/22 23:59 11:59 23:59 Output Total 1999 Balance -1999 Output: Urine 1999 Other: Urine Color Yellow
== END 2022-11-21 20:40 | disposition home or self-care (01) | DRG 807 ==
PROVIDERS: Admitting Provider Advanced Practice Midwife; PCP Nurse Practitioner Family; Visit Provider Advanced Practice Midwife
DX: O24.414 Gestational diabetes mellitus in pregnancy, insulin controlled (principal); Z37.0 Single live birth; Z3A.39 39 weeks gestation of pregnancy
CPT/HCPCS: 36415; 85027; 86850; 86900; 86901; 87635; J3490

== ENCOUNTER 2023-01-19 03:29 | Outpatient (CLI) | payer BC, SELFPAY ==
[2023-01-19 11:17] LABS: Glucose 1 Hour 148 mg/dL
[2023-01-19 12:26] LABS: Glucose 3 Hour 104 mg/dL
== END 2023-01-19 03:30 | disposition home or self-care (01) ==
PROVIDERS: Advanced Practice Midwife; PCP Nurse Practitioner Family; Visit Provider Advanced Practice Midwife
DX: Z86.32 Personal history of gestational diabetes (principal); R73.09 Other abnormal glucose
CPT/HCPCS: 36415; 82951

== ENCOUNTER 2024-10-05 04:39 | Outpatient (CLI) | payer BC, SELFPAY ==
[2024-10-05 12:49] LABS: Hemoglobin A1C 5.9 % (<5.7)
[2024-10-05 12:58] LABS: Calculated LDL 68 mg/dL (<100); Cholesterol 154 mg/dL (<200); HDL Cholesterol 71 mg/dL (40-60); Triglyceride 75 mg/dL (<150)
== END 2024-10-05 04:40 | disposition home or self-care (01) ==
LOC: LBO 04:39
PROVIDERS: PCP Nurse Practitioner Family; Visit Provider Nurse Practitioner Family
DX: Z13.1 Encounter for screening for diabetes mellitus (principal); E11.9 Type 2 diabetes mellitus without complications; Z13.220 Encounter for screening for lipoid disorders
CPT/HCPCS: 36415; 80061; 83036

== ENCOUNTER 2024-12-12 10:03 | Outpatient (REF) | payer BC, SELFPAY ==
--- NOTE | 2024-12-12 09:57 | PAPFT_PTH ---
PATIENT: Diana Shah LOC: [facility] U#:[id number] AGE/SX: 29/F ROOM: RE12/12/[address]: Aparna Hough MD : 1995 BED: DIS: 12/12/2024 SPEC #: [id number] RECD: 12/12/24 13:41 STATUS: ASHLEY REQ #: [id number] ELDA: 12/12/24 09:[address]: Aparna Hough DEPT: [facility] Cytology RECD BY: Chantelle Luciano ENTERED: 12/12/24 13:42 SP TYPE: PAPFT GENNA DR: Emery Perry, GIANCARLO Tissues: 1 - CX/ENDOCX FOR PAP SMEARS Procedures: PAP THIN PREP/[facility] Screening Comments: [id number]
== END 2024-12-12 10:04 | disposition home or self-care (01) ==
LOC: LBN 10:03
PROVIDERS: PCP Nurse Practitioner Family; Visit Provider Obstetrics & Gynecology
DX: N89.8 Other specified noninflammatory disorders of vagina (principal); Z01.419 Encounter for gynecological examination (general) (routine) without abnormal findings
CPT/HCPCS: 88142; 87480; 87510; 87660

== ENCOUNTER 2025-04-06 01:07 | Outpatient (CLI) | payer BC, SELFPAY ==
[2025-04-06 12:27] LABS: HCT 44.9 % (36.0-46.0); HGB 14.8 g/dL (11.2-15.7); MCH 29.7 pg (27.0-33.0); MCV 90 fL (80-95); MPV 11.2 fL (8.0-11.0); Platelet Count 270 10^3/uL (130-400); RBC 4.98 10^6/uL (3.93-5.22); RDW 12.4 % (11.7-14.6); WBC 3.61 10^3/uL (4.4-10.8)
[2025-04-06 14:53] LABS: ALT 36 U/L (14-59); AST 20 U/L (15-37); Albumin 3.7 g/dL (3.4-5.0); Alkaline Phosphatase 43 U/L (46-116); Anion Gap 3.8 mmol/L (3-11); BUN 12 mg/dL (7-18); Bilirubin, Total 0.4 mg/dL (0.2-1.0); CO2 29.2 mmol/L (21.0-32.0); CREATININE 0.6 mg/dL (0.55-1.02); Calcium 9.2 mg/dL (8.5-10.1); Chloride 104 mmol/L (98-107); Estimated GFR 124.53 (mL/min/1.73m2); Glucose 118 mg/dL (74-106); Potassium 3.8 mmol/L (3.5-5.1); Sodium 137 mmol/L (136-145); TSH (W/Ref FT4) 1.14 uIU/mL (0.36-3.74); Total Protein 7.2 g/dL (6.4-8.2)
[2025-04-08 10:04] LABS: C-Peptide 1.1 ng/mL (1.1 - 4.4)
[2025-04-14 09:51] LABS: Anti GAD65 Abs 0.19 nmol/L (<= 0.02); IA-2 Autoantibodies 0.02 nmol/L (<=0.02); Insulin Abs 0.02 nmol/L (0.00-0.02); ZnT8 Antibodies <15.0 U/mL (<15.0)
== END 2025-04-06 01:08 | disposition home or self-care (01) ==
PROVIDERS: PCP Nurse Practitioner Family; Visit Provider Nurse Practitioner Family
DX: R73.9 Hyperglycemia, unspecified (principal)
CPT/HCPCS: 36415; 80053; 85027; 86337; 86341; 84443; 84681

== ENCOUNTER 2025-08-16 09:50 | Outpatient (CLI) | payer BC, SELFPAY ==
[2025-08-16 10:24] LABS: HCG Quant, Pregnancy 52 mIU/mL (1-3)
== END 2025-08-16 09:51 | disposition home or self-care (01) ==
LOC: LBO 09:50
PROVIDERS: PCP Nurse Practitioner Family; Visit Provider Obstetrics & Gynecology
DX: N91.0 Primary amenorrhea (principal)
CPT/HCPCS: 36415; 84702

== ENCOUNTER 2025-08-18 03:44 | Outpatient (CLI) | payer BC, SELFPAY ==
[2025-08-18 08:51] LABS: HCG Quant, Pregnancy 196 mIU/mL (1-3)
== END 2025-08-18 03:45 | disposition home or self-care (01) ==
LOC: LBO 03:44
PROVIDERS: PCP Nurse Practitioner Family; Visit Provider Obstetrics & Gynecology
DX: N91.0 Primary amenorrhea (principal)
CPT/HCPCS: 36415; 84702

== ENCOUNTER 2025-08-22 10:37 | Outpatient (CLI) | payer BC, SELFPAY ==
[2025-08-22 09:12] LABS: HCG Quant, Pregnancy 1177 mIU/mL (1-3)
== END 2025-08-22 10:38 | disposition home or self-care (01) ==
LOC: LBO 10:38
PROVIDERS: PCP Nurse Practitioner Family; Visit Provider Obstetrics & Gynecology
DX: Z34.91 Encounter for supervision of normal pregnancy, unspecified, first trimester (principal)
CPT/HCPCS: 36415; 84702

== ENCOUNTER 2025-08-31 14:49 | Outpatient (CLI) | payer BC, SELFPAY ==
[2025-08-31 15:12] LABS: HCG Quant, Pregnancy 122 mIU/mL (1.5-4.2)
== END 2025-08-31 14:50 | disposition home or self-care (01) ==
LOC: LBO 14:50
PROVIDERS: PCP Nurse Practitioner Family; Visit Provider Obstetrics & Gynecology
DX: O07.4 Failed attempted termination of pregnancy without complication (principal)
CPT/HCPCS: 36415; 84702

== ENCOUNTER 2025-09-08 00:23 | Outpatient (CLI) | payer BC, SELFPAY ==
[2025-09-08 11:12] LABS: HCG Quant, Pregnancy 12 mIU/mL (1.5-4.2)
== END 2025-09-08 00:24 | disposition home or self-care (01) ==
LOC: LBO 00:23
PROVIDERS: PCP Nurse Practitioner Family; Visit Provider Obstetrics & Gynecology
DX: N91.0 Primary amenorrhea (principal)
CPT/HCPCS: 36415; 84702

== ENCOUNTER 2025-09-20 01:34 | Outpatient (CLI) | payer BC, SELFPAY ==
[2025-09-20 17:30] LABS: HCG Quant, Pregnancy < 3 mIU/mL (1.5-4.2)
== END 2025-09-20 01:35 | disposition home or self-care (01) ==
LOC: LOS 01:34
PROVIDERS: PCP Nurse Practitioner Family; Visit Provider Obstetrics & Gynecology
DX: N91.0 Primary amenorrhea (principal)
CPT/HCPCS: 36415; 84702